=== PATIENT | female | born 1990 ===

== ENCOUNTER 2018-02-04 13:09 | Inpatient (IN) | payer OTHER ==
[~2018-02-04] VITALS: Ht 165.1 cm; Wt 73.5 kg
[2018-02-04] MEDS ORDERED: PRENATAL TABLE1 EAC2 PO (14:07)
[2018-02-06] MEDS ORDERED: NIFE60TA3 PO (09:47)
[2018-02-06] MEDS ORDERED: TERBUTALINE SULF5 MG PO (09:47)
== END 2018-02-06 09:59 | disposition home or self-care (01) | DRG 778 ==
LOC: LDR 13:09
PROC: 4A1HXCZ Monitoring of Products of Conception, Cardiac Rate, External Approach (ICD-10-PCS; principal; 2018-02-04)
PROC: BY4CZZZ Ultrasonography of Second Trimester, Single Fetus (ICD-10-PCS; 2018-02-04)
DX: O60.02 Preterm labor without delivery, second trimester (principal); Z3A.21 21 weeks gestation of pregnancy

== ENCOUNTER 2018-06-08 06:22 | Inpatient (IN) | payer OTHER ==
[~2018-06-08] VITALS: Ht 165.1 cm; Wt 4.5 kg
[~2018-06-08 06:22] MED LIST: NIFE60TA3 PO; PRENATAL TABLE1 EAC2 PO; TERBUTALINE SULF5 MG PO
== END 2018-06-10 12:14 | disposition home or self-care (01) | DRG 766 ==
LOC: LDR 06:22 → O/R 10:48 → OB/GYN 14:07
PROVIDERS: Specialist
PROC: 4A1HXCZ Monitoring of Products of Conception, Cardiac Rate, External Approach (ICD-10-PCS; 2018-06-08)
PROC: 10D00Z1 Extraction of Products of Conception, Low, Open Approach (ICD-10-PCS; principal; 2018-06-08 10:00)
DX: O65.4 Obstructed labor due to fetopelvic disproportion, unspecified (principal); O69.81X0 Labor and delivery complicated by cord around neck, without compression, not applicable or unspecified; O99.02 Anemia complicating childbirth; Z3A.39 39 weeks gestation of pregnancy; Z37.0 Single live birth